=== PATIENT | male | born 2000 | race Caucasian/White ===

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

== ENCOUNTER → 2022-11-11 | Outpatient (CLI) | payer OTHER ==
[2022-11-11 19:36] LABS: Appearance,CSF Clear; CSF Tube Number 4
[2022-11-11 19:47] LABS: Total Protein,CSF 35 mg/dL (12-60)
[2022-11-11 19:55] LABS: Nucleated Cells, CSF 0 u/L (0-5); Red Blood Cell,CSF 0 u/L (0-10)
[2022-11-14 14:00] LABS: IgG - CSF 1.5 mg/dL (0.0 - 3.4)
== END | disposition home or self-care (01) ==
LOC: LABWHC1 11:33
PROVIDERS: ATTEND Psychiatry & Neurology Neurology
DX: R42 Dizziness and giddiness (principal); R90.82 White matter disease, unspecified; G93.9 Disorder of brain, unspecified
CPT/HCPCS: 36415; 82040; 82042; 82784; 83873; 83916; 84157; 87801; 88108; 89050

== ENCOUNTER 2023-04-21 19:14 | Emergency (ER) | payer OTHER ==
[2023-04-21 19:36] VITALS: RESP 18; TEMP 99
--- NOTE | 2023-04-21 20:38 | ED ---
Recheck HPI - General Source: patient, RN notes reviewed Mode of arrival: ambulatory Limitations: no limitations <Yuridia Santana - Last Filed: 04/21/23 20:38> <Lee Ann Glez - Last Filed: 04/21/23 22:04> - General Chief Complaint: Recheck/Abnormal Lab/Rx Stated Complaint: Hypertension Time Seen by Provider: 04/21/23 20:37 - History of Present Illness Initial Comments: This is a 22-year-old male who presents to the emergency department for elevated blood pressure. Patient checks his blood pressure very closely at home and noticed elevated readings. He is not currently taking any blood pressure medications. Denies any chest pain, shortness of breath, headaches, or visual changes. (Yuridia Santana) 9 is a 22-year-old male who presented to the emergency department today via private vehicle for evaluation of hypertension. Patient follows with a neurologist due to chronic back pain and some tremor in his hand, during a previous visit to the neurologist as noted his blood pressure was low which prompted him to purchase a blood pressure monitor for home. Patient's been lloyd toring his blood pressure for little over a week and noted that it's elevated. Blood pressure readings at home or in the 140s to 170s systolic with diastolics in the 90s to 120s. He followed with his primary care about this and they recommended an outpatient renal ultrasound and follow-up in 2 weeks. Patient has had to work the past 2 days has not been able to schedule his renal ultrasound, today he had elevated blood pressure home with a systolic of 177 and mom encouraged him to come the hospital for evaluation. Patient reports chronic back pain and mild headache no chest pain or trouble breathing. No recent illness no fevers or chills. Strong family history of hypertension states that his father started medication in his mid 20s. (Lee Ann Glez) - Related Data Previous Rx's Medication Instructions Recorded Loratadine [Claritin] 10 mg PO DAILY 7 Days #7 tab 08/01/18 Azithromycin [Zithromax Z-pack (6 0 mg PO DIRECTED #1 pack 01/15/19 tabs)] Allergies Allergy/AdvReac Type Severity Reaction Status Date / Time milk Allergy Nausea Verified 04/21/23 19:26 Review of Systems ROS Other: All systems not noted in ROS Statement are negative. <Yuridia Santana - Last Filed: 04/21/23 20:38> ROS Other: All systems not noted in ROS Statement are negative. <Lee Ann Glez - Last Filed: 04/21/23 22:04> ROS Statement: Those systems with pertinent positive or pertinent negative responses have been documented in the HPI. Past Medical History Past Medical History: No Reported History Additional Past Medical History / Comment(s): back pain History of Any Multi-Drug Resistant Organisms: None Reported Past Surgical History: Hernia Repair Additional Past Surgical History / Comment(s): bilateral hernia repair Past Psychological History: No Psychological Hx Reported Smoking Status: Never smoker Past Alcohol Use History: None Reported Past Drug Use History: None Reported <Yuridia Santana - Last Filed: 04/21/23 20:38> General Exam Limitations: no limitations <Yuridia Santana - Last Filed: 04/21/23 20:38> - General Exam Comments Initial Comments: Visual Physical Exam Vital signs reviewed General: Well-appearing, nontoxic, no acute distress. Head: Normocephalic, atraumatic Eyes: PERRLA, EOMI ENT: Airway patent Chest: Nonlabored breathing Skin: No visual rash, normal skin tone Neuro: Alert and oriented 3 Musculoskeletal: No gross abnormalities (Yuridia Santana) Course Vital Signs 04/21/23 04/21/23 19:22 21:40 Temperature 99.0 F Pulse Rate 86 108 H Respiratory 18 18 Rate Blood Pressure 147/76 165/91 O2 Sat by Pulse 100 98 Oximetry Medical Decision Making <Yuridia Santana - Last Filed: 04/21/23 20:38> <Lee Ann Glez - Last Filed: 04/21/23 22:04> - Medical Decision Making I performed the QuickNote portion of this chart. Signed Yuridia Santana PA-C. (Yuridia Santana) Was pt. sent in by a medical professional or institution ([facility], [employer], urgent care, hospital, or [facility]...) When possible be specific @ -No Did you speak to anyone other than the patient for history (EMS, parent, family, police, friend...)? What history was obtained from this source @ -Yes, mother at bedside Did you review nursing and triage notes (agree or disagree)? Why? @ -I reviewed and agree with nursing and triage notes Were old charts reviewed (outside hosp., previous admission, EMS record, old EKG, old radiological studies, urgent care reports/EKG's, [facility] records)? Report findings @ -No old charts were reviewed Differential Diagnosis (chest pain, altered mental status, abdominal pain women, abdominal pain men, vaginal bleeding, weakness, fever, dyspnea, syncope, headache, dizziness, GI bleed, back pain, seizure, CVA, palpatations, mental health)? @ - Differential includes hypertension, acute illness, secondary hypertension EKG interpreted by me (3pts min.). @ -As above X-rays interpreted by me (1pt min.). @ -None done CT interpreted by me (1pt min.). @ -None done U/S interpreted by me (1pt. min.). @ -None done What testing was considered but not performed or refused? (CT, X-rays, U/S, labs)? Why? @ - renal ultrasound to be performed outpatient as planned What meds were considered but not given or refused? Why? @ -None Did you discuss the management of the patient with other professionals (professionals i.e. , PA, [employer]ING DISPATCHER, lab, RT, psych nurse, social service assistant, pick up, teacher, loan officer assistant, egg caser)? Give summary @ -No Was smoking cessation discussed for >3mins.? @ -No Was critical care preformed (if so, how long)? @ -No Were there social determinants of health that impacted care today? How? (Homelessness, low income, unemployed, alcoholism, drug addiction, transportation, low edu. Level, literacy, decrease access to med. care, prison, rehab)? @ -No Was there de-escalation of care discussed even if they declined (Discuss DNR or withdrawal of care, Hospice)? DNR status @ -No What co-morbidities impacted this encounter? (DM, HTN, Smoking, COPD, CAD, Cancer, CVA, ARF, Chemo, Hep., AIDS, mental health diagnosis, sleep apnea, morbid obesity)? @ -None Was patient admitted / discharged? Hospital course, mention meds given and route, prescriptions, significant lab abnormalities, going to OR and other pertinent info. @ -Discharged Patient was seen and evaluated, history was obtained from patient and mom at bedside. Patient with some hypertension noted over the past week, has seen primary care as scheduled for an appropriate outpatient workup. Currently not on any medications. Patient's blood pressure mildly elevated here in the ER but not critically so not requiring intervention I recommend continued outpatient management. Patient was given the remainder of the week off work so that he can schedule and complete his renal ultrasound and follow-up with his primary care. Undiagnosed new problem with uncertain prognosis? @ -No Drug Therapy requiring intensive monitoring for toxicity (Heparin, Nitro, Insulin, Cardizem)? @ -No Were any procedures done? @ -No Diagnosis/symptom? @ -Hypertension Acute, or Chronic, or Acute on Chronic? @ -default Uncomplicated (without systemic symptoms) or Complicated (systemic symptoms)? @ -default Side effects of treatment? @ -No Exacerbation, Progression, or Severe Exacerbation? @ -No Poses a threat to life or bodily function? How? (Chest pain, [place], DC, pneumonia, PE, COPD, DKA, ARF, appy, cholecystitis, CVA, Diverticulitis, Homicidal, Suicidal, threat to staff... and all critical care pts) @ -Unlikely (Lee Ann Glez) Disposition <Yuridia Santana - Last Filed: 04/21/23 20:38> Is patient prescribed a controlled substance at d/c from ED?: No <Lee Ann Glez - Last Filed: 04/21/23 22:04> Clinical Impression: Hypertension Disposition: HOME SELF-CARE Condition: Stable Additional Instructions: Schedule out patient renal ultrasound as planned and follow up with primary care physician to likely initiate medication for hypertension Referrals: Camryn Patel MD [Primary Care Provider] - 1-2 days
[2023-04-21 21:45] VITALS: BP 165/91; PULSE 108
== END 2023-04-21 22:05 | disposition home or self-care (01) ==
LOC: EC 19:14
DX: I10 Essential (primary) hypertension (principal); Z91.011 Allergy to milk products
CPT/HCPCS: 99283

== ENCOUNTER → 2023-04-23 | Outpatient (CLI) | payer OTHER ==
--- NOTE | 2023-04-23 12:01 | US ---
EXAMINATION TYPE: US renal artery duplex complet DATE OF EXAM: 04/23/2023 COMPARISON: NONE CLINICAL INDICATION: Male, 22 years old with history of R03.0 ELEVATED BLOOD-PRESSURE READING, W/O DI AGNOS; Elevated blood pressure for at least a week. MEASUREMENTS: RENAL SIZE: Right Kidney: 10.7 x 6.0 x 6.1 cm Left Kidney: 10.7 x 5.6 x 5.7 cm Right Kidney: No hydronephrosis or lesions seen Left Kidney: No hydronephrosis or lesions seen Abd Aorta: Portion of mid-distal aorta was obscured. 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 Unable to visualize/evaluate left proximal jaison al artery. Right proximal renal artery velocity measures upper limits IMPRESSION: Limited examination. Right-sided renal artery velocities at the upper limits of normal.
== END | disposition home or self-care (01) ==
LOC: RADUSWWP 09:58
PROVIDERS: ATTEND Family Medicine
DX: I77.9 Disorder of arteries and arterioles, unspecified (principal); R03.0 Elevated blood-pressure reading, without diagnosis of hypertension
CPT/HCPCS: 93975

== ENCOUNTER → 2023-06-20 | Outpatient (CLI) | payer OTHER ==
--- NOTE | 2023-06-20 15:30 | CT ---
EXAMINATION TYPE: CT facial bones w con DATE OF EXAM: 06/20/2023 COMPARISON: None HISTORY: Left side facial swelling no injury. CT DLP: 703.7 mGycm Automated exposure control for dose reduction was used. CONTRAST: CT scan of the facial bones is performed with IV Contrast, patient injected with 100 mL of Isovue 300 . TECHNIQUE: CT scan of the sinuses is performed without contrast, axial images are obtained, coronal r eformatted images are also reviewed. FINDINGS: The osseous structures are intact. The paranasal sinuses and mastoid air cells are well aerated. The soft tissues are unremarkable. The parotid and submandibular glands are normal and symmetric. There is no neck adenopathy. There is no soft tissue edema or discrete fluid collection or abscess. IMPRESSION: No significant abnormality seen.
== END | disposition home or self-care (01) ==
LOC: RADCTMAIN 14:54
PROVIDERS: ATTEND Family Medicine
DX: R22.0 Localized swelling, mass and lump, head (principal)
CPT/HCPCS: 70487; Q9967

== ENCOUNTER → 2023-09-19 | Outpatient (CLI) | payer OTHER ==
--- NOTE | 2023-09-19 17:25 | CA ---
Transthoracic Echo Report Name: Duc Padron Age: 23 Gender: M : 2000 Exam Date: 09/19/2023 14:32 Exam Location: [facility] Ht (in): 67 Wt (lb): 193 Ordering Physician: Camryn Patel MD Attending/Referring Phys: Camryn Patel MD Production Associate Any Bourne, RDCS Procedure CPT: Indications: I10 HTN Cardiac Hx: Technical Quality: Good Contrast 1: Total Dose (mL): Contrast 2: Total Dose (mL): MEASUREMENTS (Male / Female) Normal Values 2D ECHO LV Diastolic Diameter PLAX 4.5 cm 4.2 - 5.9 / 3.9 - 5.3 cm LV Systolic Diameter PLAX 3.1 cm IVS Diastolic Thickness 0.9 cm 0.6 - 1.0 / 0.6 - 0.9 cm LVPW Diastolic Thickness 0.9 cm 0.6 - 1.0 / 0.6 - 0.9 cm LV Relative Wall Thickness 0.4 RV Internal Dim ED PLAX 2.8 cm LA Systolic Diameter LX 3.5 cm 3.0 - 4.0 / 2.7 - 3.8 cm LV Diastolic Volume MOD 4C 108.3 cm??? LV Systolic Volume MOD 4C 49.4 cm??? LV Ejection Fraction MOD 4C 54.4 % LV Cardiac Index MOD 4C 1943.2 cm???/min???m??? LV Diastolic Length 4C 8.7 cm LV Systolic Length 4C 6.9 cm LV Diastolic Volume MOD 2C 108.3 cm??? LV Systolic Volume MOD 2C 44.8 cm??? LV Ejection Fraction MOD 2C 58.6 % LV Cardiac Index MOD 2C 2095.4 cm???/min???m??? LV Diastolic Length 2C 8.5 cm LV Systolic Length 2C 6.9 cm LA Volume 46.5 cm??? 18 - 58 / 22 - 52 cm??? LA Volume Index 22.6 cm???/m??? 16 - 28 cm???/m??? M-MODE Aortic Root Diameter MM 3.3 cm MV E Point Septal Separation 0.4 cm AV Cusp Separation MM 2.5 cm DOPPLER AV Peak Velocity 97.3 cm/s AV Peak Gradient 3.8 mmHg MV Area PHT 3.2 cm??? Mitral E Point Velocity 106.3 cm/s Mitral A Point Velocity 50.8 cm/s Mitral E to A Ratio 2.1 MV Deceleration Time 237.7 ms TR Peak Velocity 209.3 cm/s TR Peak Gradient 17.5 mmHg Right Ventricular Systolic Press 21.2 mmHg FINDINGS Left Ventricle Left ventricular ejection fraction is estimated at 55-60 %. Left ventricular cavity size normal. Left ventricular wall thickness normal. Normal left ventricular wall motion. Right Ventricle Normal right ventricular size and function. Right ventricular systolic pressure within normal limits. Right Atrium Normal right atrial size. No right atrial thrombus or mass seen. Left Atrium Normal left atrial size. No left atrial thrombus or mass present. Mitral Valve Structurally normal mitral valve. No mitral stenosis, regurgitation or prolapse. Aortic Valve Trileaflet aortic valve. No aortic valve stenosis or regurgitation. Tricuspid Valve Structurally normal tricuspid valve. Mild tricuspid regurgitation. Pulmonic Valve Structurally normal pulmonic valve. Trace to mild pulmonic regurgitation. Pericardium No pericardial effusion. No pleural effusion. Aorta Normal size aortic root and proximal ascending aorta. CONCLUSIONS Normal LV size, wall thickness and systolic function. Estimated LVEF 60%. No obvious regional wall motion abnormality. No significant diastolic dysfunction. No significant valvular dysfunction. Overall normal chamber sizes. No pericardial effusion. No prior echo to compare with. Previewed by: Dr Mayank Ortega (Electronically Signed) Final Date: 19 September 2023 17:24
== END | disposition home or self-care (01) ==
LOC: RADECHMAIN 14:09
PROVIDERS: ATTEND Family Medicine
DX: I10 Essential (primary) hypertension (principal)
CPT/HCPCS: 93306

== ENCOUNTER 2024-02-02 03:03 | Emergency (ER) | payer OTHER ==
--- NOTE | 2024-02-02 03:29 | ED ---
General Adult HPI <Mray Marie - Last Filed: 02/08/24 23:39> - General Source: patient Mode of arrival: wheelchair Limitations: no limitations - History of Present Illness Location: chest, abdomen Quality: aching Consistency: constant Improves with: none Worsens with: movement, other (Palpation) Associated Symptoms: denies other symptoms Treatments Prior to Arrival: none <Lyndon Cole - Last Filed: 02/22/24 04:44> - General Chief complaint: Abdominal Pain Stated complaint: left sided pain dizziness Time Seen by Provider: 02/02/24 03:15 - History of Present Illness Initial comments: Patient is a 23-year-old man who presents for evaluation of pain along the left side of the thorax. The patient indicates pain around the left costal margin from the anterior axillary line to the posterior axillary line and states that there is pain also up toward the scapula. He notes that there is pain worse with palpation and movement but does not really seem to change with inspiration. He has not noted associated symptoms. (Lyndon Cole) - Related Data Previous Rx's Medication Instructions Recorded Loratadine [Claritin] 10 mg PO DAILY 7 Days #7 tab 08/01/18 Azithromycin [Zithromax Z-pack (6 0 mg PO DIRECTED #1 pack 01/15/19 tabs)] Allergies Allergy/AdvReac Type Severity Reaction Status Date / Time milk Allergy Nausea Verified 02/02/24 03:10 Review of Systems ROS Other: All systems not noted in ROS Statement are negative. <Mary Marie - Last Filed: 02/08/24 23:39> ROS Other: All systems not noted in ROS Statement are negative. Constitutional: Denies: fever, chills, weakness Respiratory: Denies: cough, dyspnea, hemoptysis Cardiovascular: Reports: as per HPI, chest pain Gastrointestinal: Reports: as per HPI, abdominal pain. Denies: nausea, vomiting, diarrhea, constipation Genitourinary: Denies: dysuria, hematuria Musculoskeletal: Denies: back pain Skin: Denies: rash Neurological: Denies: headache, weakness <Lyndon Cole - Last Filed: 02/22/24 04:44> ROS Statement: Those systems with pertinent positive or pertinent negative responses have been documented in the HPI. Past Medical History Past Medical History: Hypertension Additional Past Medical History / Comment(s): back pain, IIH History of Any Multi-Drug Resistant Organisms: None Reported Past Surgical History: Hernia Repair Additional Past Surgical History / Comment(s): bilateral hernia repair Past Psychological History: No Psychological Hx Reported Smoking Status: Never smoker Past Alcohol Use History: None Reported Past Drug Use History: None Reported <DouglasLyndon Filed: 02/22/24 04:44> General Exam Limitations: no limitations General appearance: alert, in no apparent distress Head exam: Present: atraumatic, normocephalic Eye exam: Present: normal appearance. Absent: scleral icterus, conjunctival injection ENT exam: Present: normal oropharynx Neck exam: Present: normal inspection Respiratory exam: Present: normal lung sounds bilaterally, chest wall tenderness. Absent: respiratory distress, wheezes, rales, rhonchi, stridor, accessory muscle use Cardiovascular Exam: Present: regular rate, normal rhythm, normal heart sounds. Absent: systolic murmur, diastolic murmur, rubs, gallop GI/Abdominal exam: Present: soft. Absent: distended, tenderness, guarding, re bound, rigid, mass Extremities exam: Present: normal inspection, normal capillary refill. Absent: pedal edema, calf tenderness Back exam: Present: normal inspection. Absent: CVA tenderness (R), CVA tenderness (L) Neurological exam: Present: alert Skin exam: Present: warm, dry, intact, normal color. Absent: rash <DouglasLyndon Filed: 02/22/24 04:44> Course Vital Signs 02/02/24 02/02/24 02/02/24 03:10 06:13 07:41 Temperature 97.7 F 98.4 F Pulse Rate 92 76 78 Respiratory 16 18 17 Rate Blood Pressure 147/86 124/76 120/81 O2 Sat by Pulse 99 99 96 Oximetry 02/02/24 08:34 Temperature 98.3 F Pulse Rate 75 Respiratory 17 Rate Blood Pressure 131/69 O2 Sat by Pulse 100 Oximetry EKG Findings - EKG Results: EKG: interpreted by ERMD, sinus rhythm (Rate 86 bpm), normal axis, normal QRS - Blocks, [place], Hypertrophy, ST Abn: Repolarization changes or abnormalities: nonspecific abnormality, ST segment, and/or T wave <Lyndon Cole Filed: 02/22/24 04:44> Medical Decision Making - Lab Data Result diagrams: 02/02/24 03:38 02/02/24 03:38 <FrankMary - Last Filed: 02/08/24 23:39> - Lab Data Result diagrams: 02/02/24 03:38 02/02/24 03:38 <Lyndon Cole - Last Filed: 02/22/24 04:44> - Medical Decision Making Was patient admitted / discharged? Hospital course, mention meds given and route, prescriptions, significant lab abnormalities, going to OR and other pertinent info. @ -Patient signed out to me pending CT. I did review the report. I discussed the laboratory studies and imaging with the patient. I did discuss the diagnosis, differential and treatment options. I do think that the patient needs further testing to possibly include an EGD and colonoscopy. Patient understood this. He will be discharged at this time. Instructed to follow-up with his primary care doctor in 2 to 4 days. Return for any new or worsening symptoms. Patient agreeable plan was discharged home in stable condition Undiagnosed new problem with uncertain prognosis? @ -Yes Drug Therapy requiring intensive monitoring for toxicity (Heparin, Nitro, Ins ulin, Cardizem)? @ -No Were any procedures done? @ -No Diagnosis/symptom? @ -Acute left upper quadrant pain Acute, or Chronic, or Acute on Chronic? @ -Acute Uncomplicated (without systemic symptoms) or Complicated (systemic symptoms)? @ -Complicated Side effects of treatment? @ -No Exacerbation, Progression, or Severe Exacerbation? @ -No Poses a threat to life or bodily function? How? (Chest pain, [place], [place], pneumonia, PE, COPD, DKA, ARF, appy, cholecystitis, CVA, Diverticulitis, Homicidal, Suicidal, threat to staff... and all critical care pts) @ -No (Mary Marie) Was pt. sent in by a medical professional or institution (, PA, [employer], urgent care, hospital, or fdc...) When possible be specific @ -[No] Did you speak to anyone other than the patient for history (EMS, parent, family, police, friend...)? What history was obtained from this source @ -[No] Did you review nursing and triage notes (agree or disagree)? Why? @ -[I reviewed and agree with nursing and triage notes] Were old charts reviewed (outside hosp., previous admission, EMS record, old EKG, old radiological studies, urgent care reports/EKG's, fdc records)? Report findings @ -[No old charts were reviewed] Differential Diagnosis (chest pain, altered mental status, abdominal pain women, abdominal pain men, vaginal bleeding, weakness, fever, dyspnea, syncope, hea dache, dizziness, GI bleed, back pain, seizure, CVA, palpatations, mental health, musculoskeletal)? @ -[Differential Abdominal Pain Men: Appendicitis, cholecystitis, diverticulosis, ischemic bowel, pancreatitis, hepatitis, UTI, gastroenteritis, AAA, incarcerated hernia, bowel obstruction, constipation, inflammatory bowel, hepatitis, peptic ulcer disease, splenic infarction, perforated viscus, testicular torsion, this is not meant to be an all-inclusive list Differential Chest Pain: Stable Angina, Unstable Angina, STEMI, NSTEMI Aortic Dissection, Pneumothorax, Musculoskeletal, Esophageal Spasm GERD, Cholecystitis, Pancreatitis, Zoster, this is not meant to be an all-inclusive list. EKG interpreted by me (3pts min.). @ -[As above] X-rays interpreted by me (1pt min.). @ -[None done] CT interpreted by me (1pt min.). @ -[None done] U/S interpreted by me (1pt. min.). @ -[None done] What testing was considered but not performed or refused? (CT, X-rays, U/S, labs)? Why? @ -[None] What meds were considered but not given or refused? Why? @ -[None] Did you discuss the management of the patient with other professionals (professionals i.e. , PA, [employer], lab, RT, psych nurse, social service technician, hand tube bender, teacher, placement officer, case fitter)? Give summary @ -[No] Was smoking cessation discussed for >3mins.? @ -[No] Was critical care preformed (if so, how long)? @ -[No] Were there social determinants of health that impacted care today? How? (Homelessness, low income, unemployed, alcoholism, drug addiction, transportation, low edu. Level, literacy, decrease access to med. care, [facility], rehab)? @ -[No] Was there de-escalation of care discussed even if they declined (Discuss DNR or withdrawal of care, Hospice)? DNR status @ -[No] What co-morbidities impacted this encounter? (DM, HTN, Smoking, COPD, CAD, Cancer, CVA, ARF, Chemo, Hep., AIDS, mental health diagnosis, sleep apnea, morbid obesity)? @ -[None] Was patient admitted / discharged? Hospital course, mention meds given and route, prescriptions, significant lab abnormalities, going to OR and other pertinent info. @ -[Patient is pending CT scan at the time of shift change (Lyndon Cole) - Lab Data Lab Results 02/02/24 02/02/24 02/02/24 Range/Units 03:38 03:38 03:38 WBC 11.2 H (3.8-10.6) k/uL RBC 4.96 (4.30-5.90) m/uL Hgb 15.4 (13.0-17.5) gm/dL Hct 43.3 (39.0-53.0) % MCV 87.4 (80.0-100.0) fL MCH 31.0 (25.0-35.0) pg MCHC 35.4 (31.0-37.0) g/dL RDW 12.3 (11.5-15.5) % Plt Count 266 (150-450) k/uL MPV 7.6 Neutrophils % 61 % Lymphocytes % 29 % Monocytes % 6 % Eosinophils % 2 % Basophils % 0 % Neutrophils # 6.8 (1.3-7.7) k/uL Lymphocytes # 3.2 (1.0-4.8) k/uL Monocytes # 0.7 (0-1.0) k/uL Eosinophils # 0.2 (0-0.7) k/uL Basophils # 0.0 (0-0.2) k/uL PT 11.5 (10.0-12.5) sec INR 1.1 (<1.2) APTT 25.6 (22.0-30.0) sec Sodium 140 (137-145) mmol/L Potassium 3.6 (3.5-5.1) mmol/L Chloride 110 H (98-107) mmol/L Carbon Dioxide 18 L (22-30) mmol/L Anion Gap 12 mmol/L BUN 18 (9-20) mg/dL Creatinine 1.57 H (0.66-1.25) mg/dL Est GFR (CKD-EPI)AfAm 71 (>60 ml/min/1.73 sqM) Est GFR (CKD-EPI)NonAf 61 (>60 ml/min/1.73 sqM) Glucose 97 (74-99) mg/dL Calcium 9.2 (8.4-10.2) mg/dL Magnesium 2.0 (1.6-2.3) mg/dL Total Bilirubin 0.4 (0.2-1.3) mg/dL AST 20 (17-59) U/L ALT 19 (4-49) U/L Alkaline Phosphatase 88 (38-126) U/L Troponin I (0.000-0.034) ng/mL C-Reactive Protein 0.40 (0.00-0.80) mg/dL Total Protein 7.7 (6.3-8.2) g/dL Albumin 4.8 (3.5-5.0) g/dL Amylase 38 (30-110) U/L Lipase 48 (23-300) U/L Urine Color Urine Appearance (Clear) Urine pH (5.0-8.0) Ur Specific [place] (1.001-1.035) Urine Protein (Negative) Urine Glucose (UA) (Negative) Urine Ketones (Negative) Urine Blood (Negative) Urine Nitrite (Negative) Urine Bilirubin (Negative) Urine Urobilinogen (<2.0) mg/dL Ur Leukocyte Esterase (Negative) 02/02/24 02/02/24 Range/Units 03:38 03:47 WBC (3.8-10.6) k/uL RBC (4.30-5.90) m/uL Hgb (13.0-17.5) gm/dL Hct (39.0-53.0) % MCV (80.0-100.0) fL MCH (25.0-35.0) pg MCHC (31.0-37.0) g/dL RDW (11.5-15.5) % Plt Count (150-450) k/uL MPV Neutrophils % % Lymphocytes % % Monocytes % % Eosinophils % % Basophils % % Neutrophils # (1.3-7.7) k/uL Lymphocytes # (1.0-4.8) k/uL Monocytes # (0-1.0) k/uL Eosinophils # (0-0.7) k/uL Basophils # (0-0.2) k/uL PT (10.0-12.5) sec INR (<1.2) APTT (22.0-30.0) sec Sodium (137-145) mmol/L Potassium (3.5-5.1) mmol/L Chloride (98-107) mmol/L Carbon Dioxide (22-30) mmol/L Anion Gap mmol/L BUN (9-20) mg/dL Creatinine (0.66-1.25) mg/dL Est GFR (CKD-EPI)AfAm (>60 ml/min/1.73 sqM) Est GFR (CKD-EPI)NonAf (>60 ml/min/1.73 sqM) Glucose (74-99) mg/dL Calcium (8.4-10.2) mg/dL Magnesium (1.6-2.3) mg/dL Total Bilirubin (0.2-1.3) mg/dL AST (17-59) U/L ALT (4-49) U/L Alkaline Phosphatase (38-126) U/L Troponin I <0.012 (0.000-0.034) ng/mL C-Reactive Protein (0.00-0.80) mg/dL Total Protein (6.3-8.2) g/dL Albumin (3.5-5.0) g/dL Amylase (30-110) U/L Lipase (23-300) U/L Urine Color Colorless Urine Appearance Clear (Clear) Urine pH 6.5 (5.0-8.0) Ur Specific [place] 1.015 (1.001-1.035) Urine Protein Negative (Negative) Urine Glucose (UA) Negative (Negative) Urine Ketones Negative (Negative) Urine Blood Negative (Negative) Urine Nitrite Negative (Negative) Urine Bilirubin Negative (Negative) Urine Urobilinogen <2.0 (<2.0) mg/dL Ur Leukocyte Esterase Negative (Negative) Disposition Is patient prescribed a controlled substance at d/c from ED?: No Time of Disposition: 08:23 <aMry Marie - Last Filed: 02/08/24 23:39> <Lyndon Cole - Last Filed: 02/22/24 04:44> Clinical Impression: Chest wall pain Disposition: HOME SELF-CARE Condition: Stable Instructions (If sedation given, give patient instructions): Chest Wall Pain (ED) Additional Instructions: Please follow-up with your primary care doctor for further evaluation of your symptoms. I do recommend an EGD and colonoscopy due to your reported rectal bleeding with family history of Crohn's. You may see the GI specialist in [facility], one of the surgeons or one of the GI doctors from [facility] gastroenterology. Return to the emergency department for any new or worsening symptoms Referrals: Camryn Patel MD [Primary Care Provider] - 1-2 days Casey Bowling DO [REFERRING] - 1-2 days Susan Do MD [STAFF PHYSICIAN] - 1-2 days Kaushik Jung MD [STAFF PHYSICIAN] - 1-2 days
[2024-02-02 03:45] LABS: Basophils % (A) 0 %; Eosinophils # (A) 0.2 k/uL (0-0.7); Eosinophils % (A) 2 %; HCT 43.3 % (39.0-53.0); HGB 15.4 gm/dL (13.0-17.5); Lymphocytes # (A) 3.2 k/uL (1.0-4.8); Lymphocytes % (A) 29 %; MCHC 35.4 g/dL (31.0-37.0); MCV 87.4 fL (80.0-100.0); Mean Platelet Volume 7.6; Monocytes # (A) 0.7 k/uL (0-1.0); Monocytes % (A) 6 %; Neutrophils # (A) 6.8 k/uL (1.3-7.7); Neutrophils % (A) 61 %; Platelet Count 266 k/uL (150-450); RBC 4.96 m/uL (4.30-5.90); RDW 12.3 % (11.5-15.5); WBC 11.2 k/uL (3.8-10.6)
[2024-02-02 03:53] LABS: Appearance,Urine Clear (Clear); Bilirubin,Urine Negative (Negative); Blood,Urine Negative (Negative); Color,Urine Colorless; Glucose,Urine (UA) Negative (Negative); Ketones,Urine Negative (Negative); Leukocyte Esterase,Urine Negative (Negative); Nitrite,Urine Negative (Negative); PH, Urine 6.5 (5.0-8.0); Protein,Urine Negative (Negative); Specific Gravity,Urine 1.015 (1.001-1.035); Urobilinogen,Urine <2.0 mg/dL (<2.0)
[2024-02-02 03:55] LABS: INR 1.1 (<1.2); Partial Thromboplastin Time 25.6 sec (22.0-30.0); Prothrombin Time 11.5 sec (10.0-12.5)
[2024-02-02 03:58] LABS: ALT 19 U/L (4-49); AST 20 U/L (17-59); African American GFR (CKD) 71 (>60 ml/min/1.73 sqM); Albumin 4.8 g/dL (3.5-5.0); Alkaline Phosphatase 88 U/L (38-126); Amylase 38 U/L (30-110); Anion Gap 12 mmol/L; Blood Urea Nitrogen 18 mg/dL (9-20); Calcium 9.2 mg/dL (8.4-10.2); Carbon Dioxide 18 mmol/L (22-30); Chloride 110 mmol/L (98-107); Glucose 97 mg/dL (74-99); Lipase 48 U/L (23-300); Non-African American GFR(CKD) 61 (>60 ml/min/1.73 sqM); Potassium 3.6 mmol/L (3.5-5.1); Sodium 140 mmol/L (137-145); Total Bilirubin 0.4 mg/dL (0.2-1.3); Total Protein 7.7 g/dL (6.3-8.2)
--- NOTE | 2024-02-02 04:04 | XR ---
EXAM: XR Chest, 2 Views CLINICAL HISTORY: ITS.REASON XR Reason: Chest Pain TECHNIQUE: Frontal and lateral views of the chest. COMPARISON: No relevant prior studies available. FINDINGS: Lungs: No consolidation or mass. Pleural space: No effusion. Heart: No cardiomegaly. Bones/joints: No acute findings. IMPRESSION: No acute cardiopulmonary process.
[2024-02-02 07:48] VITALS: RESP 17
--- NOTE | 2024-02-02 07:55 | CT ---
EXAMINATION TYPE: CT abdomen pelvis wo con DATE OF EXAM: 02/02/2024 5:47 AM COMPARISON: None. CLINICAL INDICATION: Male, 23 years old with history of L flank pain, pt presents with rectal bleedin g TECHNIQUE: Axial images were obtained from above the diaphragm to the pubic rami in the axial plane a t 5 mm thick sections. Reconstructed images are reviewed on the computer in the coronal plane. CONTRAST: mL of . Study performed without Oral Contrast DLP: 746.1 mGycm, Automated exposure control for dose reduction was used. FINDINGS: Limited CT sections are obtained the lung bases. The lung bases are clear. CT ABDOMEN: Liver: Normal Spleen: Normal Pancreas: Normal Adrenal glands: The adrenal glands are normal. Gallbladder: Normal Kidneys: No masses are evident. No hydronephrosis is present. No cysts are present. No renal stone s are evident. Aorta: Vascular calcification is within the aorta. Inferior vena cava: Normal. CT PELVIS: Loops of bowel within the abdomen and pelvis are normal. Some diverticular changes are present. No a cute diverticulitis. There are loops of bowel which are incompletely distended or lack oral contras t limiting their evaluation. Appendix: Normal as visualized. Urinary bladder: Normal. Genitourinary structures: Prostate appears unremarkable. Osseous structures: No suspicious lytic or sclerotic lesions. IMPRESSION: 1. Mild diverticulosis without acute diverticulitis. 2. No acute renal or ureteral stones. [facility], , 02/02/2024 7:53 AM
[2024-02-02 08:43] VITALS: BP 131/69; PULSE 75; TEMP 98.3
== END 2024-02-02 08:42 | disposition home or self-care (01) ==
LOC: EC 03:03
DX: R07.89 Other chest pain (principal); R10.12 Left upper quadrant pain; Z91.011 Allergy to milk products
CPT/HCPCS: 36415; 71046; 74176; 80053; 81003; 82150; 83690; 83735; 84484; 85025; 85610; 85730; 86140; 93005; 99285